=== PATIENT | female | born 1955 | race Two or more races ===

== ENCOUNTER → 2019-03-18 | Outpatient (CLI) | payer MEDICARE | END | disposition home or self-care (01) | LOC: MSC 10:15 | PROVIDERS: ATTEND Anesthesiology | DX: G89.4 Chronic pain syndrome (principal); M54.16 Radiculopathy, lumbar region; M25.9 Joint disorder, unspecified; M25.562 Pain in left knee; M25.561 Pain in right knee; M25.551 Pain in right hip; Z79.899 Other long term (current) drug therapy ==

== ENCOUNTER → 2019-06-03 | Outpatient (CLI) | payer MEDICARE, OTHER | END | disposition home or self-care (01) | LOC: MSC 10:35 | PROVIDERS: ATTEND Anesthesiology | DX: M54.16 Radiculopathy, lumbar region (principal); G89.4 Chronic pain syndrome; M25.562 Pain in left knee; M25.561 Pain in right knee; M25.551 Pain in right hip; M54.2 Cervicalgia; M25.522 Pain in left elbow; M25.521 Pain in right elbow; M25.572 Pain in left ankle and joints of left foot; M25.571 Pain in right ankle and joints of right foot; M25.532 Pain in left wrist; M25.531 Pain in right wrist; M25.9 Joint disorder, unspecified; Z79.891 Long term (current) use of opiate analgesic ==

== ENCOUNTER → 2019-09-23 | Outpatient (CLI) | payer MEDICARE, OTHER | END | disposition home or self-care (01) | LOC: MSC 11:10 | PROVIDERS: ATTEND Anesthesiology | DX: M54.16 Radiculopathy, lumbar region (principal); G89.4 Chronic pain syndrome; M25.562 Pain in left knee; M25.561 Pain in right knee; M25.551 Pain in right hip; M25.9 Joint disorder, unspecified; Z79.891 Long term (current) use of opiate analgesic ==

== ENCOUNTER → 2019-11-25 | Outpatient (CLI) | payer MEDICARE, OTHER | END | disposition home or self-care (01) | LOC: MSC 10:15 | PROVIDERS: ATTEND Anesthesiology | DX: M54.16 Radiculopathy, lumbar region (principal); G89.4 Chronic pain syndrome; M25.562 Pain in left knee; M25.561 Pain in right knee; M25.551 Pain in right hip; M25.9 Joint disorder, unspecified; Z79.891 Long term (current) use of opiate analgesic ==